=== PATIENT | female | born 2000 | race Caucasian/White ===

== ENCOUNTER 2023-11-22 02:55 | Emergency (ER) | payer OTHER ==
[2023-11-22 03:07] VITALS: BP 126/86; PULSE 80; RESP 18; TEMP 99; BMI 26.9
[2023-11-22] MEDS ORDERED: MAG HYDROX/AL HYDROX/SIMETH 30 ML UNIT-DOSE CUP ONE (03:41)
[2023-11-22] MEDS: MAG HYDROX/AL HYDROX/SIMETH 30 ML UNIT-DOSE CUP PO ONE (03:42)
[2023-11-22 04:19] LABS: PH,URINE 6.5 (5.0-8.0); URINE APPEARANCE CLEAR; URINE BILIRUBIN NEGATIVE (NEGATIVE); URINE COLOR YELLOW; URINE GLUCOSE (UA) NEGATIVE (NEGATIVE); URINE KETONE NEGATIVE (NEGATIVE); URINE LEUK ESTERASE NEGATIVE (NEGATIVE); URINE NITRITE NEGATIVE (NEGATIVE); URINE PROTEIN NEGATIVE (NEGATIVE); URINE UROBILINOGEN 0.2 mg/dL (0.2-1.0)
== END 2023-11-22 04:35 | disposition home or self-care (01) ==
LOC: JER 02:55
DX: R10.13 Epigastric pain (principal); K29.70 Gastritis, unspecified, without bleeding
CPT/HCPCS: 81003; 84703; 87086; 99283-25